=== PATIENT | male | born 1945 | race Caucasian/White ===

== ENCOUNTER 2020-12-11 15:12 | Emergency (ER) | payer MEDICARE ==
--- NOTE | 2020-12-11 16:36 | EDM.PDOC ---
ED HPI GENERAL MEDICAL PROBLEM - General Chief Complaint: Genitourinary Problem Stated Complaint: URGENCY AND FREQUENCY OF URINATION Time Seen by Provider: 12/11/20 15:19 Source of Information: Reports: Patient, RN Notes Reviewed History Limitations: Reports: No Limitations - History of Present Illness INITIAL COMMENTS - FREE TEXT/NARRATIVE: Patient is a 75-year-old male presenting to the emergency department with complaints of urgency and frequency of urination. He reports that he has a history of prostate cancer and recently finished radiation therapy on November 29. He reports he has had some degree of frequency, urgency, and dysuria since the radiation, however for the last 3 days it has been slightly worse. He is currently traveling in route to [place] from [place]. He denies any fever, chills, nausea, or vomiting. Denies any abnormal back pain. Generalized Pain Score (Numeric/FACES): 3 - Related Data Allergies Allergy/AdvReac Type Severity Reaction Status Date / Time bacitracin Allergy Rash Verified 12/11/20 15:24 chlorproethazine Allergy Muscle Verified 12/11/20 15:24 Weakness levofloxacin Allergy Muscle Verified 12/11/20 15:24 Aches morphine Allergy Nausea Verified 12/11/20 15:24 Home Meds: Home Meds Aspirin 81 mg PO DAILY 12/11/20 [History] Clopidogrel [Plavix] 75 mg PO DAILY 12/11/20 [History] Ezetimibe [Zetia] 10 mg PO DAILY 12/11/20 [History] Metoprolol Tartrate 12.5 mg PO DAILY 12/11/20 [History] Omeprazole 20 mg PO DAILY 12/11/20 [History] Phenazopyridine [Pyridium] 200 mg PO TID PRN 2 Days #6 tab 12/11/20 [Rx] Rosuvastatin Calcium 40 mg PO DAILY 12/11/20 [History] amLODIPine [Norvasc] 5 mg PO DAILY 12/11/20 [History] hydroCHLOROthiazide [Hydrochlorothiazide] 25 mg PO DAILY 12/11/20 [History] Past Medical History HEENT History: Reports: Cataract, Other (See Below) Other HEENT History: retina Cardiovascular History: Reports: CAD, High Cholesterol, Hypertension, Stents Gastrointestinal History: Reports: Other (See Below) Other Gastrointestinal History: intestinal malrotation Genitourinary History: Reports: Other (See Below) Other Genitourinary History: prostate cancer Musculoskeletal History: Reports: Other (See Below) Other Musculoskeletal History: bilateral knee replacement Social & Family History - Tobacco Use Tobacco Use Status *Q: Light Tobacco User Years of Tobacco use: 5 Packs/Tins Daily: 1 - Caffeine Use Caffeine Use: Reports: Coffee - Alcohol Use Days Per Week of Alcohol Use: 1 Number of Drinks Per Day: 1 Total Drinks Per Week: 1 - Recreational Drug Use Recreational Drug Use: No ED ROS GENERAL - Review of Systems Review Of Systems: See Below Constitutional: Reports: No Symptoms. Denies: Fever, Chills, Weakness HEENT: Reports: No Symptoms Respiratory: Reports: No Symptoms Cardiovascular: Reports: No Symptoms Endocrine: Reports: No Symptoms GI/Abdominal: Reports: No Symptoms : Reports: Dysuria (Mild), Frequency, Urgency Musculoskeletal: Reports: No Symptoms Skin: Reports: No Symptoms Neurological: Reports: No Symptoms Psychiatric: Reports: No Symptoms Hematologic/Lymphatic: Reports: No Symptoms Immunologic: Reports: No Symptoms ED EXAM, RENAL/ - Physical Exam Exam: See Below Exam Limited By: No Limitations General Appearance: Alert, WD/WN, No Apparent Distress Respiratory/Chest: No Respiratory Distress, Lungs Clear, Normal Breath Sounds, No Accessory Muscle Use, Chest Non-Tender Cardiovascular: Normal Peripheral Pulses, Regular Rate, Rhythm, No Edema, No Gallop, No JVD, No Murmur, No Rub Back Exam: Normal Inspection, Full Range of Motion. No: CVA Tenderness (L), CVA Tenderness (R) Neurological: Alert, Oriented, CN II-XII Intact, Normal Cognition, Normal Gait, Normal Reflexes, No Motor/Sensory Deficits Psychiatric: Normal Affect, Normal Mood Skin Exam: Warm, Dry, Intact, Normal Color, No Rash Course - Vital Signs Last Recorded V/S: Last Vital Signs Temp 97.8 F 12/11/20 15:20 Pulse 60 12/11/20 15:20 Resp 18 12/11/20 15:20 BP 155/87 H 12/11/20 15:20 Pulse Ox 96 12/11/20 15:20 - Orders/Labs/Meds Labs: Laboratory Tests 12/11/20 12/11/20 12/11/20 Range/Units 15:30 15:35 15:35 WBC 3.82 L (4.23-9.07) K/mm3 RBC 4.35 L (4.63-6.08) M/mm3 Hgb 13.6 L (13.7-17.5) gm/dl Hct 41.4 (40.1-51.0) % MCV 95.2 H (79.0-92.2) fl MCH 31.3 (25.7-32.2) pg MCHC 32.9 (32.2-35.5) g/dl RDW Std Deviation 42.0 (35.1-43.9) fL Plt Count 131 L (163-337) K/mm3 MPV 11.4 (9.4-12.3) fl Neut % (Auto) 54.1 (34.0-67.9) % Lymph % (Auto) 22.3 (21.8-53.1) % [place] % (Auto) 19.1 H (5.3-12.2) % Eos % (Auto) 3.7 (0.8-7.0) Baso % (Auto) 0.8 (0.1-1.2) % Neut # (Auto) 2.07 (1.78-5.38) K/mm3 Lymph # (Auto) 0.85 L (1.32-3.57) K/mm3 [place] # (Auto) 0.73 (0.30-0.82) K/mm3 Eos # (Auto) 0.14 (0.04-0.54) K/mm3 Baso # (Auto) 0.03 (0.01-0.08) K/mm3 Manual Slide Review Abnormal smear Sodium 144 (136-145) mEq/L Potassium 4.3 (3.5-5.1) mEq/L Chloride 105 (98-107) mEq/L Carbon Dioxide 31 (21-32) mEq/L Anion Gap 12.3 (5-15) BUN 20 H (7-18) mg/dL Creatinine 1.1 (0.7-1.3) mg/dL Est Cr Clr Drug Dosing 66.58 mL/min Estimated GFR (MDRD) > 60 (>60) mL/min BUN/Creatinine Ratio 18.2 H (14-18) Glucose 90 (70-99) mg/dL Calcium 8.6 (8.5-10.1) mg/dL Total Bilirubin 0.7 (0.2-1.0) mg/dL AST 27 (15-37) U/L ALT 38 (16-63) U/L Alkaline Phosphatase 47 (46-116) U/L C-Reactive Protein <0.2 (<1.0) mg/dL Total Protein 7.1 (6.4-8.2) g/dl Albumin 3.7 (3.4-5.0) g/dl Globulin 3.4 gm/dL Albumin/Globulin Ratio 1.1 (1-2) Urine Color Yellow (Yellow) Urine Appearance Clear (Clear) Urine pH 6.5 (5.0-8.0) Ur Specific [place] 1.025 (1.005-1.030) Urine Protein 1+ H (Negative) Urine Glucose (UA) Negative (Negative) Urine Ketones Negative (Negative) Urine Occult Blood 2+ H (Negative) Urine Nitrite Negative (Negative) Urine Bilirubin Negative (Negative) Urine Urobilinogen 1.0 (0.2-1.0) Ur Leukocyte Esterase Negative (Negative) Urine RBC 5-10 H (0-5) /hpf Urine WBC 5-10 H (0-5) /hpf Ur Epithelial Cells 0-5 (0-5) /hpf Urine Bacteria Few (FEW) /hpf Urine Mucus Rare (FEW) /hpf - Re-Assessments/Exams Free Text/Narrative Re-Assessment/Exam: Patient is a 75-year-old male presenting to the emergency department with complaints of urgency and frequency of urination as well as some mild dysuria. Reports he has had symptoms similar to this ever since finishing radiation of his prostate on 29 November. Over the last days it has been slightly worse. He is currently traveling in route from [place] to [place]. Denies any fever, chills, nausea, or vomiting. Exam is grossly unremarkable. He has no CVA tenderness. I have ordered blood work and urinalysis. 12/11/20 16:35 Otology significant for WBC slightly low at 3.82 as well as hemoglobin minimally low at 13.16. Urinalysis showed 1+ protein, 2+ occult blood, 5-10 RBCs, and 5- 10 WBCs. It is leukocyte and nitrite negative. Patient request urine to be sent for culture. I did order urine culture. Good phone number to contact him with results if this should become positive is [phone]. They will be leaving to travel to [place] tomorrow. I will send a prescription for Pyridium to help with the frequency of urination and urgency due to likely cystitis caused by radiation therapy. You may increase fluid intake. Discussed return precautions. Discharge instructions as documented. Departure - Departure Time of Disposition: 16:35 Disposition: Home, Self-Care 01 Condition: Good Clinical Impression: Frequency of urination - Discharge Information *PRESCRIPTION DRUG MONITORING PROGRAM REVIEWED*: No *COPY OF PRESCRIPTION DRUG MONITORING REPORT IN PATIENT KATIE: No Prescriptions: Phenazopyridine [Pyridium] 200 mg PO TID PRN 2 Days #6 tab PRN Reason: Dysuria Instructions: Urinary Frequency, Adult Referrals: PCP,Not In Area [Primary Care Provider] - Forms: ED Department Discharge Additional Instructions: You were seen in the emergency department today for evaluation with regards to urinary frequency and urgency. Work-up included blood work and urinalysis. Results of your work-up did show a small amount of blood in your urine but no evidence of infection. The urine has been sent for culture. Recommended to increase your fluid intake. A prescription for Pyridium has been sent to [facility] [place] [facility]. Uses medication as prescribed for normal within 2 days. Should your urine culture grow out any bacteria, you will be notified and treated as indicated. If you should experience any new or worsening symptoms of concern, please seek treatment at your nearest medical facility. Sepsis Event Note (ED) - Evaluation Sepsis Screening Result: No Definite Risk
== END 2020-12-11 16:46 | disposition home or self-care (01) ==
LOC: JD.ED 15:12
DX: R35.0 Frequency of micturition (principal); R39.15 Urgency of urination; I25.10 Atherosclerotic heart disease of native coronary artery without angina pectoris; E78.00 Pure hypercholesterolemia, unspecified; I10 Essential (primary) hypertension; Z72.0 Tobacco use; Z79.82 Long term (current) use of aspirin; Z79.02 Long term (current) use of antithrombotics/antiplatelets; Z79.899 Other long term (current) drug therapy; Z88.8 Allergy status to other drugs, medicaments and biological substances; Z88.5 Allergy status to narcotic agent
CPT/HCPCS: 36415; 80053; 81001; 85025; 86140; 87086; 99283